=== PATIENT | male | born 1965 | race Caucasian/White ===

== ENCOUNTER 2018-08-23 16:16 | Inpatient (IN) | payer OTHER ==
[~2018-08-23] VITALS: Ht 177.8 cm; Wt 122.5 kg
--- NOTE | ~2018-08-23 | EKG ---
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
--- NOTE | ~2018-08-23 | EKG ---
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
--- NOTE | ~2018-08-23 | EKG ---
[place], [place] ELECTROCARDIOGRAM REPORT NAME: CHARLENE MONET UNIT #: [id number] ROOM: 402 DOCTOR: SAM DRAFT REPORT BIRTHDATE: [birth year] [facility] Test Date: 2018-08-23 Test Time: 22:42:46 Pat Name: CHARLENE MONET Department: Room: 402 Gender: M House Officer: DWIGHT : 1965 Requested By: NABIL GARCIA Order Number: [id number] Reading MD: Raudel Chilel MD Measurements Intervals [place] Rate: 82 P: 37 WV: 180 QRS: 1 QRSD: 94 T: 4 QT: 374 QTc: 437 Interpretive Statements Sinus rhythm Baseline wander in lead(s) V4 Electronically Signed On 08-24-2018 5:59:46 PDT by Raudel Chilel MD CM:EKGRPT:ELECTROCARDIOGRAM REPORT [id number] NABIL VARGAS DRAFT REPORT NABIL GARCIA M.D.
--- NOTE | ~2018-08-23 | EKG ---
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
[2018-08-23 16:22] VITALS: BP 134/86
[2018-08-23 16:38] VITALS: BP 121/76
[2018-08-23 16:45] LABS: BASO % 0.6 % (0.0-1.0); EOS # 0.3 10*3/uL (0.0-0.4); HEMATOCRIT 41.6 % (42.0-52.0); HEMOGLOBIN 13.7 g/dl (14.0-18.0); LYMPH # 1.9 10*3/uL (1.3-4.4); LYMPH % 28.9 % (27.0-41.0); MEAN CELL VOLUME 86.7 fl (80.0-94.0); MEAN CORPUSCULAR HGB 28.5 pg (27.0-31.0); MEAN CORPUSCULAR HGB CONC 32.9 g/dl (33.0-37.0); MEAN PLATELET VOLUME 8.8 fl (9.6-12.3); MONO # 0.5 10*3/uL (0.1-1.0); MONO % 6.8 % (3.0-9.0); NEUT # 3.9 10*3/uL (2.3-7.9); NEUT % 58.6 % (47.0-73.0); PLATELET COUNT AUTOMATED 204 10*3/uL (130-400); WHITE BLOOD COUNT 6.6 10*3/uL (4.8-10.8)
[2018-08-23 16:59] VITALS: BP 121/77
[2018-08-23 17:01] LABS: ALBUMIN 3.5 gm/dl (3.1-4.5); ALKALINE PHOSPHATASE 67 U/L (45-117); BUN 12 mg/dl (7-24); CHLORIDE 108 mmol/L (98-107); CREATININE 0.82 mg/dL (0.70-1.30); POTASSIUM 3.8 mmol/L (3.5-5.1); SGOT/AST 17 IU/L (3-35); SGPT/ALT 25 U/L (12-78); SODIUM 143 mmol/L (136-145); TOTAL PROTEIN 6.4 gm/dL (6.4-8.2)
[2018-08-23 17:04] LABS: TROPONIN I 0.132 ng/ml (<0.045)
--- NOTE | 2018-08-23 17:04 | NUR ---
TROPONIN 0.136 DR GARCIA NOTIFIED
--- NOTE | 2018-08-23 17:20 | NUR ---
PT DENIES NEED TO URINATE FOR SPECIMIN, GIVEN WATER PER HIS REQUEST.
[2018-08-23 17:26] VITALS: BP 130/88
--- NOTE | 2018-08-23 17:39 | NUR ---
GIVEN MORE WATER, CALL LIGHT IN REACH.
[2018-08-23 17:55] LABS: INTERNATIONAL NORM RATIO 0.9 (2.0-3.5)
[2018-08-23 18:05] VITALS: BP 126/81
--- NOTE | 2018-08-23 18:15 | NUR ---
A 53, admitted to , under the services of YURI Trujillo DO with a diagnosis of ELEVATED TROPONIN, CHEST PAIN. Chief complaint is CHEST PAIN. Patient arrived via stretcher from ER. Monitor applied. Initial assessment completed. Vital signs taken and recorded. YURI TRUJILLO DO notified of admission to the unit. Orders received. See assessment for past medical history, medications and allergies. Patient and/or family oriented to unit. [address] visitation policy reviewed. Clothing/patient valuable form completed. JOHN ROLAND
--- NOTE | 2018-08-23 18:43 | NUR ---
DR GARAY'S ANSWERING SERVICE NOTIFIED OF CONSULT.
[2018-08-23 20:00] VITALS: BP 134/78
--- NOTE | 2018-08-23 20:08 | NUR ---
AWAKE/ALERT FOR SHIFT ASSESSMENT. RESPIRATIONS EASY/REG ON RA. C/O CONTINUED CHEST PRESSURE BUT BETTER THAN WHEN HE GOT HERE. NO FURTHER VOICED COMPLAINTS. BED IN LOW POSITION, WHEELS LOCKED, CALL LIGHT IN REACH. MVI BAG MAINTAINED PER ORDER.
--- NOTE | 2018-08-23 20:15 | NUR ---
NOTIFIED DR BATISTA OF PATIENT CRIT TROP 0.135
--- NOTE | 2018-08-23 20:30 | NUR ---
DR GARAY RETURNED PHONE CALL. NOTIFIED OF CONSULT AND ELEVATED TROPS. NEW ORDERS RECEIVED.
[2018-08-24] VITALS: BP 155/81
[2018-08-24 05:47] LABS: URINE AMPHETAMINES < 1000 (1000ng/ml); URINE BARBITURATES < 200 (200ng/ml); URINE BENZODIAZEPINES < 200 (200ng/ml); URINE CANNABINOIDS (THC) < 50 (50ng/ml); URINE COCAINE < 300 (300ng/ml); URINE METHADONE < 300 (300ng/ml); URINE OPIATES < 300 (300ng/ml)
[2018-08-24 05:49] LABS: URINE PHENCYCLIDINE < 25 (25ng/ml)
[2018-08-24 07:08] LABS: BASO % 0.7 % (0.0-1.0); EOS # 0.4 10*3/uL (0.0-0.4); EOS % 5.8 % (1.0-4.0); HEMATOCRIT 42.1 % (42.0-52.0); HEMOGLOBIN 13.7 g/dl (14.0-18.0); LYMPH # 1.5 10*3/uL (1.3-4.4); LYMPH % 25.3 % (27.0-41.0); MEAN CELL VOLUME 86.4 fl (80.0-94.0); MEAN CORPUSCULAR HGB 28.1 pg (27.0-31.0); MEAN CORPUSCULAR HGB CONC 32.5 g/dl (33.0-37.0); MEAN PLATELET VOLUME 9.3 fl (9.6-12.3); MONO # 0.5 10*3/uL (0.1-1.0); MONO % 7.4 % (3.0-9.0); NEUT # 3.7 10*3/uL (2.3-7.9); PLATELET COUNT AUTOMATED 181 10*3/uL (130-400); RED BLOOD COUNT 4.87 10*6/uL (4.50-5.90); RED CELL DISTRI WIDTH 12.8 % (0-14.5); WHITE BLOOD COUNT 6.1 10*3/uL (4.8-10.8)
[2018-08-24 07:44] LABS: ALBUMIN 3.3 gm/dl (3.1-4.5); ALKALINE PHOSPHATASE 70 U/L (45-117); BUN 12 mg/dl (7-24); CHLORIDE 106 mmol/L (98-107); CHOLESTEROL 219 mg/dL (<200); CREATININE 0.96 mg/dL (0.70-1.30); HDL CHOLESTEROL 86 mg/dl (40-60); LDL CHOLESTEROL 111 mg/dL (9-159); PHOSPHOROUS 3.8 mg/dL (2.5-4.9); POTASSIUM 3.5 mmol/L (3.5-5.1); SGOT/AST 14 IU/L (3-35); SGPT/ALT 24 U/L (12-78); SODIUM 142 mmol/L (136-145); TRIGLYCERIDES 110 mg/dl (<150); VLDL CHOLESTEROL 22 mg/dL (6-40)
[2018-08-24 07:50] LABS: FREE T4 0.86 ng/dl (0.76-1.46)
[2018-08-24 08:00] VITALS: BP 148/78
[2018-08-24 08:43] LABS: VITAMIN D, 25-HYDROXY 13.9 ng/mL (30-100)
--- NOTE | 2018-08-24 09:00 | NUR ---
[employer] [facility] in to talk to patient. Patient states lives at home with family. There are few steps in the home. Physician: none Pharmacy: none Home health services: none Patient's level of ADLs: INDEPENDENT Patient has working utilities: all working DME: none Follow-up physician's appointment after d/c: will be made by hospitalist nurse director upon discharge Does patient want to access PORTAL?: no Discharge plan discussed with patient, patient lives at home, is independent in adls and ambualtion, drives, states he will be going home when able and denies any home needs. BRAYAN SALEEM
--- NOTE | 2018-08-24 13:25 | NUR ---
INFORMED CONSENT OBTAINED FOR LEXISCAN NUCLEAR STRESS TEST WITH DR. DREW. RESTING EKG NSR WITH A RESTING HR OF 84 WITH BP OF 130/90. HAS POOR R WAVE PROGRESSION. LUNGS DIMINISHED BS WITH SPO2 OF 96% ON ROOM AIR. HAS C/O CONSTANT PRECORDIAL CHEST DISCOMFORT THAT IS A 4 ON PAIN SCALE. PT COMPLETED A 1:00 LEXISCAN PROTOCOL RECEIVING LEXISCAN 0.4 MG IV OVER 10 SECONDS. HAD NO EKG CHANGES OR CHANGES IN CONSTANT PRECORDIAL CHEST DISCOMFORT. DID HAV C/O DIZZINESS AND HEADACHE THAT SUBSIDED IN RECOVERY. HAD A PEAK HR OF 107 WITH BP OF 140/88. LAST RECOVERY HR OF 97 WITH BP OF 130/88. AWAITING SCANNING IN STABLE CONDITION.
--- NOTE | 2018-08-24 15:54 | NUR ---
DR BERRY NOTIFIED OF MANUAL BP OF 142/98. PT ASYMPTOMATIC.
[2018-08-24 20:00] VITALS: BP 121/61
--- NOTE | 2018-08-24 20:01 | NUR ---
AWAKE/ALERT FOR SHIFT ASSESSMENT. C/O SORE THROAT, CEPACOL LOZENGER GIVEN ORDERED. PLEASANT ADN COOPERATIVE WITH CARE. CALL LIGGHT IN REACH
[2018-08-25] VITALS: BP 119/70
--- NOTE | 2018-08-25 07:05 | NUR ---
ARRIVED ON SHIFT, PER PATIENT REQUEST DID NOT AWAKEN FOR REPORT, REPORT RECIEVED FROM OFF GOING NURSE. WHITE BOARD UPDATED.
[2018-08-25 08:00] VITALS: BP 123/89
--- NOTE | 2018-08-25 09:00 | NUR ---
case management visits with patient, patient denies any home needs
[2018-08-25] MEDS ORDERED: Nystatin 100,000 UNI PO (11:06)
[2018-08-25] MEDS ORDERED: LISINOPRIL10 M1 PO (11:06)
[2018-08-25 12:00] VITALS: BP 129/76
--- NOTE | 2018-08-25 13:03 | NUR ---
Shift chart check completed.
--- NOTE | 2018-08-25 13:27 | NUR ---
Discharge instructions reviewed with patient/family. Patient receptive and verbalizes understanding. Follow-up care arranged. Written instructions given to patient, ASSISTED BY CHALKER SOLES VIA W/C TO 1ST FLOOR. TEDDY CHRISTINA
== END 2018-08-25 13:27 | disposition home or self-care (01) | DRG 206 ==
LOC: ED 16:16 → EDHOLD 17:43 → 4E 17:43
PROVIDERS: Emergency Medicine; Family Medicine; ADMIT Emergency Medicine
PROC: 4A02XM4 Measurement of Cardiac Total Activity, External Approach (ICD-10-PCS; principal; 2018-08-24)
PROC: 3E073KZ Introduction of Other Diagnostic Substance into Coronary Artery, Percutaneous Approach (ICD-10-PCS; 2018-08-24)
DX: M94.0 Chondrocostal junction syndrome [Tietze] (principal); I24.9 Acute ischemic heart disease, unspecified; R74.8 Abnormal levels of other serum enzymes; F10.229 Alcohol dependence with intoxication, unspecified; D64.9 Anemia, unspecified; E87.8 Other disorders of electrolyte and fluid balance, not elsewhere classified; K21.9 Gastro-esophageal reflux disease without esophagitis; I10 Essential (primary) hypertension; Z80.42 Family history of malignant neoplasm of prostate